=== PATIENT | male | born 1945 | race Caucasian/White ===

== ENCOUNTER 2024-03-08 14:05 | Inpatient (IN) | payer OTHER ==
[~2024-03-08] VITALS: Ht 175.3 cm; Wt 91.3 kg
[2024-03-08] MEDS ORDERED: ELIQUIS5 M2 PO (14:59)
[2024-03-08] MEDS ORDERED: DULO30 PO (15:00)
[2024-03-08] MEDS ORDERED: DRAMAMINE25 M1 PO (15:01)
[2024-03-08] MEDS ORDERED: ZESTORETIC 20-1 EAC1 PO (15:01)
[2024-03-08] MEDS ORDERED: METF500 PO (15:02)
[2024-03-08] MEDS ORDERED: METO25ER PO (15:02)
[2024-03-08 15:40] LABS: Base Excess Venous 3.1 mmol/L; Bicarbonate Venous 25.7 mmol/L (24.0-30.0); PCO2 Venous 45.6 mmHg (38-42)
[2024-03-08 15:43] LABS: BASOPHILS ABSOLUTE AUTO 0.01 K/mm3 (0.00-0.23); BASOPHILS PERCENT AUTO 0 % (0-2); EOSINOPHILS ABSOLUTE AUTO 0.01 K/mm3 (0.00-0.68); EOSINOPHILS PERCENT AUTO 0 % (0-6); Hematocrit 47.2 % (37.0-53.0); Hemoglobin 15.7 g/dL (13.5-17.5); IMMATURE GRAN ABSOLUTE AUTO 0.01 K/mm3 (0.00-0.10); IMMATURE GRAN PERCENT AUTO 0 % (0-1); LYMPHOCYTES ABSOLUTE AUTO 0.59 K/mm3 (0.84-5.20); LYMPHOCYTES PERCENT AUTO 12 % (21-46); MONOCYTES ABSOLUTE AUTO 0.24 K/mm3 (0.16-1.47); MONOCYTES PERCENT AUTO 5 % (4-13); Mean Corpuscular HGB 28.2 pg (26.0-34.0); Mean Corpuscular HGB Conc 33.3 g/dL (31.5-36.5); Mean Corpuscular Volume 85 fL (80-100); Mean Platelet Volume 9.3 fL (9.1-12.4); NEUTROPHILS ABSOLUTE AUTO 4.05 K/mm3 (1.96-9.15); NEUTROPHILS PERCENT AUTO 83 % (41-73); Platelet Count 168 K/mm3 (150-400); RDW Coefficient Variation 12.8 % (11.7-14.2); RDW Standard Deviation 39.5 fL (35.1-46.3); Red Blood Cell Count 5.57 M/mm3 (4.30-5.90); White Blood Cell Count 4.91 K/mm3 (4.00-11.30)
[2024-03-08 16:12] LABS: Calcium, Blood 8.7 mg/dL (8.5-10.1); Creatinine, Blood 1.41 mg/dL (0.60-1.20); Potassium, Blood 3.2 mmol/L (3.5-5.5)
[2024-03-08] MEDS ORDERED: Doxycycline Hyclate 100 MG in Dextrose 5% 250 ML IV ONE (16:45)
[2024-03-08] MEDS ORDERED: CefTRIAXone Sodium 1,000 MG in NS 100 ML IV ONE (16:45)
[2024-03-08] MEDS ORDERED: FLU VACC TS2024-25(6MOS UP)/PF 45 MCG/0.5 ML SYRINGE IM ONE (17:40)
[2024-03-08] MEDS ORDERED: Ondansetron HCl 2 MG / ML 2ML Vial IV PRN (17:40)
[2024-03-08] MEDS ORDERED: NS 1,000 ML IV SCH (18:00)
[2024-03-08] MEDS ORDERED: Potassium Chloride 20 MEQ TabCR PO ONE (18:00)
[2024-03-08 18:39] LABS: Influenza A, PCR NEGATIVE (NEGATIVE); Influenza B, PCR NEGATIVE (NEGATIVE); Resp Syncytial Virus, PCR NEGATIVE (NEGATIVE); SARS-Cov-2 (COVID-19) PCR, MMC NEGATIVE (NEGATIVE)
[2024-03-08] MEDS ORDERED: Apixaban 5 MG Tab PO SCH (21:00)
[2024-03-08 21:41] VITALS: BP 139/77
[2024-03-09 03:34] VITALS: BP 130/79
--- NOTE | 2024-03-09 05:53 | NUR ---
SHIFT SUMMARY PT IS ALERT AND ORIENTED TIMES 4 . PT FROM ED AND ADMITTED FOR BILATERAL PNEUMONIA. PT ACCIDENTALLY PULLED IV WHILE IN ED AND WHEN TRANSFERRED FROM ED TO MED FLOOR, IT CAME OUT WHILE BEING TRANSFERRED FROM ONE BED TO ANOTHER. IV WAS PLACED IN LEFT HAND. IV FLUSHES WELL. PT HAS NS RUNNING 1000MLS @ 100/HR. BED IN LOW POSITION, RAILS TIMES 2, CALL LIGHT WITHIN REACH.
[2024-03-09 06:29] LABS: Hematocrit 44.2 % (37.0-53.0); Hemoglobin 14.9 g/dL (13.5-17.5); Mean Corpuscular HGB 28.4 pg (26.0-34.0); Mean Corpuscular HGB Conc 33.7 g/dL (31.5-36.5); Mean Corpuscular Volume 84 fL (80-100); Mean Platelet Volume 9.1 fL (9.1-12.4); Platelet Count 158 K/mm3 (150-400); RDW Coefficient Variation 12.9 % (11.7-14.2); RDW Standard Deviation 39.5 fL (35.1-46.3); Red Blood Cell Count 5.24 M/mm3 (4.30-5.90); White Blood Cell Count 3.81 K/mm3 (4.00-11.30)
[2024-03-09 06:43] LABS: Albumin, Blood 2.6 g/dL (3.4-5.0); Albumin/Globulin Ratio 0.6 (0.8-1.8); Bilirubin, Total 0.7 mg/dL (0.1-1.0); Bun/Creatinine Ratio 19.4 (12.0-20.0); Calcium, Blood 8.1 mg/dL (8.5-10.1); Creatinine, Blood 1.39 mg/dL (0.60-1.20); Potassium, Blood 3.6 mmol/L (3.5-5.5); Total Protein, Blood 6.6 g/dL (6.4-8.2)
[2024-03-09] MEDS ORDERED: Insulin Human Lispro 100 Units/ML 3ML Syringe SC SCH (07:30)
[2024-03-09] MEDS ORDERED: Polyethylene Glycol 3350 17 gm PO PRN (08:10)
[2024-03-09] MEDS ORDERED: Acetaminophen 500 MG Tab PO PRN (08:15)
[2024-03-09 08:18] VITALS: BP 121/82
[2024-03-09 08:27] LABS: BAND PERCENT MAN 6 % (0-8); EOSINOPHILS ABSOLUTE MAN 0.07 K/mm3 (0.00-0.68); EOSINOPHILS PERCENT MAN 2 % (0-6); LYMPHOCYTES % ATYPICAL MANUAL 2 % (0-0); LYMPHOCYTES ABSOLUTE MAN 0.68 K/mm3 (0.84-5.20); LYMPHOCYTES PERCENT MAN 16 % (21-46); MONOCYTES ABSOLUTE MAN 0.26 K/mm3 (0.16-1.47); MONOCYTES PERCENT MAN 7 % (4-13); SEG NEUTROPHILS PERCENT MAN 65 % (41-73); TOTAL CELLS COUNTED 100
[2024-03-09 08:28] LABS: BASOPHILS ABSOLUTE MAN 0.07 K/mm3 (0.00-0.23); BASOPHILS PERCENT MAN 2 % (0-2)
[2024-03-09] MEDS ORDERED: Doxycycline Hyclate 100 MG TAB PO SCH (09:00)
[2024-03-09] MEDS ORDERED: Cholecalciferol 1000 Unit Tablet (=25MCG) PO SCH (09:00)
[2024-03-09] MEDS ORDERED: Lactobacil 2-S.Thermo-Bifido 1 1 Cap PO SCH (09:00)
[2024-03-09] MEDS ORDERED: Lisinopril 20 MG Tab PO SCH (09:00)
[2024-03-09] MEDS ORDERED: DULoxetine HCL 30 MG Cap DR PO SCH (09:00)
[2024-03-09] MEDS ORDERED: Metoprolol Succinate 25 MG TABCR PO SCH (09:00)
[2024-03-09] MEDS ORDERED: Benzonatate 100 MG Cap PO PRN (12:55)
[2024-03-09] MEDS ORDERED: NS 250 ML IV PRN (13:30)
[2024-03-09 15:42] VITALS: BP 124/78
--- NOTE | 2024-03-09 17:50 | NUR ---
SHIFT SUMMARY PATIENT A/OX4, ABLE TO MAKE NEEDS KNOWN. INDEPENDENT IN ROOM. PATIENT WILL CALL FOR ASSISTANCE WITH LINES WHEN NEEDED. TELEMETRY IN PLACE, NO EVENTS NOTED THIS SHIFT. IV DRESSING CHANGED TODAY AND BED LINENS CHANGED DUE TO IV LEAKING FROM LOOSE CONNECTION FROM TUBING TO CATHETER SITE. PATIENT ABLE TO HAVE A SHOWER TODAY. PATIENT CONTINUES WITH HARSH, HACKING, PRODUCTIVE COUGH. NO HEMOPTYSIS NOTED. TESSALON PEARLES ADMINISTERED PER APR. PATIENT WITH MULTIPLE VISITOR TODAY. REMOVED FROM SUPPLEMENTAL OXYGEN, SPO2 WNL ON ROOM AIR. CONTINUOUS PULSE OX IN PLACE. NO OTHER CONCERNS AT THIS TIME.
[2024-03-09] MEDS ORDERED: CefTRIAXone Sodium 1,000 MG in NS 100 ML IV SCH (18:00)
[2024-03-09 20:02] VITALS: BP 133/93
[2024-03-09] MEDS ORDERED: Docusate Sodium/Senna 1 Tab PO SCH (21:00)
[2024-03-09] MEDS ORDERED: GuaiFENesin 600 MG TabCR PO SCH (21:00)
[2024-03-10 04:52] VITALS: BP 153/91
[2024-03-10 05:12] LABS: Hematocrit 45.2 % (37.0-53.0); Hemoglobin 15.1 g/dL (13.5-17.5); Mean Corpuscular HGB 28.2 pg (26.0-34.0); Mean Corpuscular HGB Conc 33.4 g/dL (31.5-36.5); Mean Corpuscular Volume 85 fL (80-100); Platelet Count 181 K/mm3 (150-400); RDW Coefficient Variation 12.9 % (11.7-14.2); RDW Standard Deviation 39.8 fL (35.1-46.3); Red Blood Cell Count 5.35 M/mm3 (4.30-5.90); White Blood Cell Count 3.44 K/mm3 (4.00-11.30)
--- NOTE | 2024-03-10 05:25 | NUR ---
SHIFT SUMMARY PT IS ALERT AND ORIENTED TIMES 4 . PT FROM ED AND ADMITTED FOR BILATERAL PNEUMONIA. PT WAS NOT ABLE TO SLEEP THIS NIGHT HE SLEPT A GOOD PORTION OF THE DAY. PT WAS INCONTINENT OF URINE ONCE HE ATTEMPTED TO USE HIS URINAL AND STARTED COUGHING. BED IN LOW POSITION, RAILS TIMES 2, CALL LIGHT WITHIN REACH.
[2024-03-10 05:51] LABS: Albumin, Blood 2.6 g/dL (3.4-5.0); Anion Gap 10 mmol/L (3-11); Blood Urea Nitrogen 31 mg/dL (8-24); Bun/Creatinine Ratio 23.5 (12.0-20.0); CO2, Blood 27 mmol/L (21-32); Calcium, Blood 8.5 mg/dL (8.5-10.1); Chloride, Blood 106 mmol/L (98-108); Creatinine, Blood 1.32 mg/dL (0.60-1.20); Glomerular Filtration Rate 56 (60-); Glucose, Blood 132 mg/dL (70-99); Phosphorus, Blood 2.8 mg/dL (2.5-4.9); Potassium, Blood 4.1 mmol/L (3.5-5.5); Sodium, Blood 139 mmol/L (136-145)
[2024-03-10 07:26] VITALS: BP 146/108
[2024-03-10] MEDS ORDERED: AmLODIPine Besylate 5 MG Tab PO SCH (09:00)
[2024-03-10] MEDS ORDERED: DOXY100 PO (11:19)
[2024-03-10] MEDS ORDERED: GUAI600T33 PO (11:19)
--- NOTE | 2024-03-10 12:30 | NUR ---
DISCHARGE NOTE PATIENT A/OX4, ABLE TO MAKE NEEDS KNOWN. PLEASANT AND COOPERATVIE WITH CARE. PATIENT INDEPENDENT IN ROOM, TELEMETRY IN PLACE, NO EVENTS NOTED TODAY. TELEMETRY AND IV REMOVED PRIOR TO DISCHARGE. PATIENT CONTINUOUS PULSE OX REMOVED, SPO2 ABOVE 94% ALL SHIFT PRIOR TO REMOVAL. DISCHARGE EDUCATION PROVIDED REAGURDING FGOLLOW UP APPOINTMENTS AND NEW MEDICATIONS. PRESCRIPTIONS FAXED TO [facility] PER PATIENT REQUEST [facility] IS CLOSED TODAY. SON AT BEDSIDE WHEN DISCHARGE INSTRUCTIONS PROVIDED. PATIENT AND SON AGREEABLE TO DISCHARGE PLAN. PATIENT DECLINED NEED FOR WHEELCHAIR TRANSPORTATION OUT OF FACILITY AND REQUESTED TO WALK WITH HIS SON. NO OTHER CONCERNS.
== END 2024-03-10 12:15 | disposition home or self-care (01) | DRG 193 ==
LOC: ER 14:05 → ERHOLD 14:06 → MEDS 14:06
PROVIDERS: Emergency Medicine; Internal Medicine; Nurse Practitioner Acute Care; ADMIT Internal Medicine
DX: J18.9 Pneumonia, unspecified organism (principal); J96.01 Acute respiratory failure with hypoxia; R04.2 Hemoptysis; I48.91 Unspecified atrial fibrillation; N18.30 Chronic kidney disease, stage 3 unspecified; I12.9 Hypertensive chronic kidney disease with stage 1 through stage 4 chronic kidney disease, or unspecified chronic kidney disease; E87.6 Hypokalemia; E11.22 Type 2 diabetes mellitus with diabetic chronic kidney disease; Z79.899 Other long term (current) drug therapy; Z79.01 Long term (current) use of anticoagulants; Z79.811 Long term (current) use of aromatase inhibitors; Z79.84 Long term (current) use of oral hypoglycemic drugs; Z88.8 Allergy status to other drugs, medicaments and biological substances; Z28.21 Immunization not carried out because of patient refusal
CPT/HCPCS: 0241U; 36415; 71045; 80048; 80053; 80069; 82803; 82947; 83735; 83880; 84145; 84484; 85025; 85027; 85379; 93005; 93010; 94660; 94762; 99285-25; A9270; J0696; J7030; J7050; J7060